=== PATIENT | male | born 1955 | race Caucasian/White ===

== ENCOUNTER 2020-05-13 22:09 | Inpatient (IN) | payer OTHER, SELFPAY ==
--- NOTE | ~2020-05-13 | XR_ITS ---
EXAMINATION: XR chest 1V portable EXAM DATE: 05/13/2020 23:19 INDICATION: Asthma exacerbation. TECHNIQUE: Portable AP frontal chest x-ray was obtained. There is no prior study for comparison. FINDINGS: Extensive abnormal reticulation bilaterally. Difficult to determine how much of this is chr onic. Could be acute or chronic infectious process, edema, pulmonary fibrosis or combination thereof. Small bilateral pleural effusions. Cardiomediastinal silhouette is normal. There is no pneumothorax suspected. There are no osseous abnormalities identified. IMPRESSION: Extensive abnormal reticulation, differential diagnosis including acute or chronic infec tious process, edema, fibrosis. Small pleural effusions. Reviewed, dictated and finalized at location A. IMPRESSION: Extensive abnormal reticulation, differential diagnosis including acute or chronic infectious process, edema, fibrosis. Small pleural effusions.
--- NOTE | ~2020-05-13 | XR_ITS ---
XR chest 1V portable DATE: 05/15/2020 18:39 INDICATION: Shortness of breath, diaphoresis TECHNIQUE: Portable upright AP chest on 05/15/2020 at 1835 hours COMPARISON: 05/13/2020 portable AP chest at 2320 hours FINDINGS: There is pulmonary vascular congestion and redistribution. There is prominence of the minor fissure. There are mild bilateral pleural effusions. There are bilateral primarily central and lower lung zone infiltrates, increased since 05/13/2020, sug gesting pulmonary edema. Pneumonia is not excluded. Aortic calcification. Diffuse osteopenia. IMPRESSION: Congestive changes, increased bilateral infiltrates since 05/13/2020 Reviewed, dictated and finalized at location A.
--- NOTE | ~2020-05-13 | XR_ITS ---
EXAMINATION: XR chest 1V portable DATE: 05/17/2020 09:24 INDICATION: Pneumonia. TECHNIQUE: A single frontal view of the chest was obtained. COMPARISON: Chest single view 05/15/2020, 05/13/2020 FINDINGS: There are small pleural effusions. There is a diffuse interstitial pattern in the lungs. Th ere are mild patchy airspace opacities in right mid and upper lung zones and left mid and lower lung zones. No pneumothorax. The heart size is normal. IMPRESSION: 1. Stable diffuse lung disease, consistent with pulmonary edema versus pneumonia. 2. Stable small pleural effusions. Reviewed, dictated and finalized at location A. IMPRESSION: 1. Stable diffuse lung disease, consistent with pulmonary edema versus pneumoni a. 2. Stable small pleural effusions.
--- NOTE | 2020-05-13 22:17 | ECG_ITS ---
Measurements Intervals [place] Rate: 99 P: 52 [place]: 202 QRS: 84 QRSD: 113 T: -19 QT: 342 QTc: 441 Interpretive Statements SINUS RHYTHM SHORT RUN OF ATRIAL TACHYCARDIA, ATRIAL TRIPLETS, ATRIAL AND VENTRICULAR PREMATURE COMPLEXES INTRAVENTRICULAR CONDUCTION DELAY ANTEROSEPTAL INFARCT, AGE INDETERMINATE BORDERLINE ST-T WAVE ABNORMALITY- INF/LAT LEADS BASELINE ARTIFACT- I, II, III, AVR, AVF, V5-V6 ABNORMAL ECG Electronically Signed On 05-14-2020 7:40:36 CDT by Todd Woodard D.O.
--- NOTE | 2020-05-13 22:17 | ED.SOB ---
HPI - SOB/Dyspnea General Chief Complaint: Shortness of Breath/Dyspnea Stated Complaint: short of breath Time Seen by Provider: 05/13/20 22:17 Source: patient Mode of arrival: ambulatory Limitations: no limitations History of Present Illness HPI Narrative: Patient is a 64-year-old male with a history of asthma, not currently on any maintenance medications, who presents for evaluation of wheezing and shortness of breath. Patient reports he had been drinking alcohol this evening, had developed some shortness of breath throughout the evening, with increased wheezing and shortness of breath to the point where the patient felt he needed to come to the hospital for a albuterol treatment. Patient denies previous hospitalization or intubation for asthma in the past, is currently not on any maintenance medications. He denies smoking history. He denies any chest pain. No recent fever, cough, cold illnesses. He does report some mild sinus congestion. Related Data Allergies Allergy/AdvReac Type Severity Reaction Status Date / Time No Known Allergies Allergy Unverified 04/24/13 12:39 Review of Systems Review of Systems: Narrative: CONSTITUTIONAL: Denies fever CARDIOVASCULAR: Denies chest pain RESPIRATORY: Denies cough, reports shortness of breath GASTROINTESTINAL: Denies abdominal pain SKIN: Denies rash MUSCULOSKELETAL: Denies back pain NEUROLOGIC: Denies headache PMFSH Past Medical History Medical History Asthma Hypertension Surgical History Surgical History (Updated 05/13/20 @ 22:26 by Anamaria Whyte MD) H/O hand surgery Social History Social History (Updated 05/13/20 @ 22:26 by Anamaria Whyte MD) Smoking status: Never smoker Alcohol intake: current Substance use: never Gender identity (if verbalized by the patient): Male Exam Narrative: Exam Narrative: GENERAL: Awake, alert, conversant HEAD: Normocephalic, atraumatic. EYES: PERRLA and EOMI. ENT: Nares clear, no rhinorrhea or epistaxis. Mucous membranes moist. NECK: Supple. CHEST: Oxygen saturations 84% on room air, positive respiratory distress, use of accessory muscles to breathe, abdominal muscle retractions, bilateral expiratory wheezing, tachypnea HEART: Regular rate, sinus rhythm ABDOMEN:Non distended, non tender EXTREMITIES: Normal range of motion. No edema. SKIN: Warm, dry, no rash. NEURO:No focal deficits. Alert and oriented x3 Course Vital Signs Vital signs: Vital Signs Temperature 36.6 C 05/13/20 22:19 Pulse Rate 121 H 05/13/20 22:19 Respiratory Rate 28 H 05/13/20 22:19 Blood Pressure 172/103 H 05/13/20 22:19 Pulse Oximetry 85 L 05/13/20 22:19 Temperature 36.6 C 05/13/20 22:19 Pulse Rate 94 05/14/20 00:33 Respiratory Rate 19 05/14/20 00:33 Blood Pressure 128/81 05/14/20 00:33 Pulse Oximetry 99 05/14/20 00:33 MDM - SOB/Dyspnea MDM Narrative Medical decision making narrative: Patient presented for evaluation of shortness of breath. At the time of assessment, patient is tachycardic, tachypneic and hypoxemic on room air. IV was obtained, patient had use of accessory muscles, evidence of respiratory distress, and expiratory wheezing. This did seem consistent with an asthma exacerbation. No other infectious type symptoms per patient. Patient was given IV magnesium, steroids, and a continuous DuoNeb treatment with much improvement in his work of breathing. Chest x-ray is quite concerning for possible pneumonia. We will covid swab patient, blood cultures and lactic were obtained. Pt is septic, but no signs of septic shock. Pt was given IV fluids, there is some data suggesting covid type patient's should not receive large fluid boluses so this was done judiciously in the ED. Patient was given broad-spectrum antibiotics to cover community-acquired pneumonia. Patient also hyponatremic, given his history of alcohol abuse, this is likely beer proteinemia.
[2020-05-13 22:19] VITALS: BP 172/103; PULSE 121; RESP 28; TEMP 36.6; O2SAT 85
[2020-05-13 22:24] VITALS: BP 154/93; PULSE 105; RESP 24; O2SAT 94
[2020-05-13 22:30] LABS: Basophils Absolute Auto 0.1 K/mm3 (0.0-0.1); Basophils Percent Auto 0.7 % (0.2-1.2); Eosinophils Absolute Auto 0.2 K/mm3 (0-0.3); Eosinophils Percent Auto 1.3 % (0-4.4); Hematocrit 42.7 % (42.0-52.0); Hemoglobin 15.4 g/dL (14.0-18.0); Immature Granulocyte Absolute 0.08 K/mm3 (0.00-0.031); Immature Granulocyte Percent A 0.6 % (0-0.5); Lymphocytes Absolute Auto 3.32 K/mm3 (0.9-3.2); Lymphocytes Percent Auto 24.7 % (18.3-44.2); Mean Corpuscular HGB Conc 36.1 g/dl (32-36); Mean Corpuscular Volume 88.8 fl (80-100); Mean Platelet Volume 11.2 fl (7.4-10.4); Monocytes Absolute Auto 1.7 K/mm3 (0.1-0.6); Monocytes Percent Auto 12.6 % (2.6-8.5); Neutrophils Absolute Auto 8.1 K/mm3 (1.3-6.7); Neutrophils Percent Auto 60.1 % (45.5-73.1); Platelet Count Result 306 k/mm3 (150-375); Red Blood Count 4.81 M/mm3 (4.6-6.20); Red Cell Distribution Width 11.9 % (11.5-14.5); White Blood Count 13.5 K/mm3 (4.5-10.0)
[2020-05-13 22:36] VITALS: PULSE 83; RESP 20; O2SAT 98
[2020-05-13] MEDS: ALBUTEROL SULFATE NEB 2.5 MG/0.5 ML INH 20 MG INHALATION (22:36)
[2020-05-13] MEDS: IPRATROPIUM BR 0.02% INH SOLN 0.5 MG/2.5 ML VIAL 2 MG INHALATION (22:36)
[2020-05-13 22:44] LABS: Alveolar/Arterial O2 Gradient 287.7 mmHg; Carboxyhemoglobin 0.6 % THb (0-2.0); Device SIMPLE MASK; Fractional Inspired Oxygen 60 %; Methemoglobin ABG 0.4 %THb (0-1.5); Modified Allen's Test Pass; Oxygen Content ABG 20.9 %vol (16.0-22.0); Oxyhemoglobin 96.5 % THb (90.0-100.0); PCO2 ABG 32.5 mmHg (35.0-45.0); PO2 ABG 104.4 mmHg (80.0-100.0); PO2 FiO2 Ratio Arterial Blood 1.74 %; Reduced Hemoglobin 2.5 %THb (0-5.0); Site Drawn LEFT RADIAL; Total Hemoglobin 15.3 g/dL (12.0-18.0); pH ABG 7.449 (7.350-7.450)
[2020-05-13 22:44] LABS: Anion Gap 17 mmol/L (8-16); Blood Urea Nitrogen 8 mg/dL (9-20); Calcium 8.8 mg/dL (8.4-10.2); Carbon Dioxide 22 mmol/L (22-30); Chloride 79 mmol/L (98-107); Estimated Glomerular Filt Rate > 60; Glucose 145 mg/dL (75-110); Potassium 3.3 mmol/L (3.4-5.0); Sodium 118 mmol/L (137-145)
[2020-05-13] MEDS: SODIUM CHLORIDE 0.9% IV 500 ML 999 ML IV CONT (22:47)
[2020-05-13] MEDS: methylPREDNISolone SOD SUCC 125 MG VIAL IV PUSH (22:47)
[2020-05-13] MEDS: MAGNESIUM SULF 2 GM/WATER 50ML 2 GM/50 ML BAG IVPB (22:47)
[2020-05-13 22:49] VITALS: BP 163/99; PULSE 83; RESP 17; O2SAT 98
[2020-05-13 22:54] LABS: INR 1.1; Prothrombin Time 13.4 Seconds (11.1-14.7)
[2020-05-13 22:55] LABS: Partial Thromboplastin Time 29.6 SECONDS (22.3-36.8)
[2020-05-13 23:03] LABS: Ethanol 235 mg/dL (<10)
[2020-05-13 23:17] VITALS: BP 120/77; PULSE 87; RESP 16; O2SAT 100
--- NOTE | 2020-05-13 23:36 | PC.NURSE ---
pt called this into room. pt states his insurance does not cover him being admitted to this hospital so he doesn't want to stay. this rn informed md obrien. she states she will go talk to pt.
[2020-05-14] VITALS (23 sets, daily range): BP systolic 110–149; BP diastolic 65–87; PULSE 82–118; RESP 14–22; TEMP 35.8–37; O2SAT 95–99; BMI 27.0
[2020-05-14] MEDS: SODIUM CHLORIDE 0.9% IV 1,000 ML 999 ML IV CONT (01:23)
[2020-05-14] MEDS: ALBUTEROL SULFATE NEB 2.5 MG/0.5 ML INH 5 MG INHALATION ×4 (01:41→20:52)
[2020-05-14] MEDS: IPRATROPIUM BR 0.02% INH SOLN 0.5 MG/2.5 ML VIAL INHALATION ×4 (01:41→20:53)
[2020-05-14 02:16] LABS: CRP 1.2 mg/dL (<1.0)
--- NOTE | 2020-05-14 02:34 | ADMGEN ---
This patient, Piotr Haley, was admitted to Intensive Care Unit-5. Patient/family oriented to hospital policies and general routines including ID bracelet, bed and alarms, visiting hours, pain management, procedures, bathroom and other care routines, personal items, smoking policy, room service/diet, and visiting hours. Valuables list has been completed. Information on how to activate the Rapid Response Team has been discussed. Patient/Family are encouraged to report perceived risks to care and to ask questions if they do not understand what they are told or what they should do.
--- NOTE | 2020-05-14 03:02 | PM.IMHP ---
H&P: HPI History of Present Illness Date/Time: 05/14/20 03:02 Chief complaint: Pneumonia Narrative: This is a 64 year old male with known HTN and asthma who [facility] complaining of shortness of breath. Associated symptoms include wheezing. The patient recently was diagnosed with pneumonia and completed a course of amoxicillin for same. He reports that he was feeling better until tonight when he started to have worsening shortness of breath and wheezing. He denies any recent fever, chills, cough, chest pain, or palpitations. He does report having a sore throat. The patient was evaluated in the ER tonight and given multiple breathing treatments. The patient admits to drinking alcohol daily and was found to have severe hyponatremia in the ER tonight. He also was found to have an elevated troponin. CXR demonstrated extensive abnormal reticulation, differential diagnosis including acute or chronic infectious process, edema, fibrosis. Small pleural effusions. We were asked to admit the patient to the hospital for further care. He has no other complaints at this time. Review of Systems Review of Systems: All systems reviewed & are unremarkable except as noted in HPI and below PMFSH Past Medical History Medical History Asthma Hypertension Surgical History Surgical History H/O hand surgery Family History Family History Mother Heart disease Skin cancer Father Skin cancer Father Heart disease Sibling Diabetes mellitus Social History Social History Smoking packs per day: 0.5 Smoking cigarettes per day: 10.0 Years smoked: 40 Smoking pack-years: 20.00 Smoking status: Former smoker Smoking end date: 05/14/15 Alcohol intake: current Drinks per week: 70 Substance use: never Gender identity (if verbalized by the patient): Male Spiritual care concerns: No Meds Home Medications and Allergies Home Medications Medication Instructions Recorded Confirmed Type amlodipine 10 mg PO DAILY 05/14/20 05/14/20 History atorvastatin 20 mg PO DAILY 05/14/20 05/14/20 History hydrochlorothiazide 12.5 mg PO DAILY 05/14/20 05/14/20 History loratadine 10 mg PO DAILY 05/14/20 05/14/20 History nystatin See Rx Instructions .ROUTE .COMPLEX 05/14/20 05/14/20 History potassium chloride 10 meq PO DAILY 05/14/20 05/14/20 History Allergies Allergy/AdvReac Type Severity Reaction Status Date / Time latex Allergy Rash Verified 05/14/20 02:19 lisinopril Allergy Anaphylaxis Verified 05/14/20 02:19 Vital Signs Vital Signs - 24 hr 05/13/20 22:19 05/13/20 22:24 05/13/20 22:36 Temperature 36.6 C Pulse Rate 121 H 105 H 83 Respiratory Rate 28 H 24 H 20 Blood Pressure 172/103 H 154/93 H Pulse Oximetry 85 L 94 98 05/13/20 22:49 05/13/20 23:17 05/14/20 00:33 Temperature Pulse Rate 83 87 94 Respiratory Rate 17 16 19 Blood Pressure 163/99 H 120/77 128/81 Pulse Oximetry 98 100 99 05/14/20 01:38 05/14/20 01:41 05/14/20 01:50 Temperature Pulse Rate 90 85 82 Respiratory Rate 18 20 20 Blood Pressure 149/74 H Pulse Oximetry 95 95 05/14/20 02:15 Temperature Pulse Rate 97 Respiratory Rate Blood Pressure Pulse Oximetry Exam Const: General: cooperative, alert and awake Nutritional Appearance: well nourished Orientation/consciousness: patient oriented x3 HENMT: Head: normal to inspection General nose exam: Normal external nose present Face and sinus: normal facial exam Mouth: Yes Normal oral and palatal mucosa present and Yes oropharynx normal Eyes: Pupils: Equal, round and reactive pupils present EOM: EOMs intact bilaterally Neck: Neck: supple and no JVD Thyroid: thyroid normal Lymphatic: lymphadenopathy not noted Resp: Effort & Inspec
[2020-05-14 04:00] LABS: Reflex Lactic Acid Yes or No Add Lactic
[2020-05-14] MEDS: SODIUM CHLORIDE 0.9% IV 1,000 ML 100 ML (04:35)
[2020-05-14 05:11] LABS: Basophils Percent Auto 0.2 % (0.2-1.2); Hematocrit 40.9 % (42.0-52.0); Hemoglobin 14.6 g/dL (14.0-18.0); Immature Granulocyte Absolute 0.02 K/mm3 (0.00-0.031); Immature Granulocyte Percent A 0.3 % (0-0.5); Lymphocytes Absolute Auto 0.31 K/mm3 (0.9-3.2); Lymphocytes Percent Auto 5.1 % (18.3-44.2); Mean Corpuscular HGB Conc 35.7 g/dl (32-36); Mean Corpuscular Volume 89.7 fl (80-100); Mean Platelet Volume 11.5 fl (7.4-10.4); Monocytes Absolute Auto 0.1 K/mm3 (0.1-0.6); Monocytes Percent Auto 1.7 % (2.6-8.5); Neutrophils Absolute Auto 5.6 K/mm3 (1.3-6.7); Neutrophils Percent Auto 92.7 % (45.5-73.1); Platelet Count Result 281 k/mm3 (150-375); Red Blood Count 4.56 M/mm3 (4.6-6.20); Red Cell Distribution Width 11.9 % (11.5-14.5)
[2020-05-14 05:38] LABS: Anion Gap 21 mmol/L (8-16); Blood Urea Nitrogen 5 mg/dL (9-20); Calcium 8.6 mg/dL (8.4-10.2); Carbon Dioxide 14 mmol/L (22-30); Chloride 89 mmol/L (98-107); Estimated CRCL calculation 120 ml/min; Estimated Glomerular Filt Rate > 60; Glucose 183 mg/dL (75-110); Potassium 2.8 mmol/L (3.4-5.0); Sodium 124 mmol/L (137-145)
[2020-05-14 05:53] LABS: Troponin I 0.038 ng/mL (0.000-0.034)
[2020-05-14 05:54] LABS: Sodium Urine Random 20 meq/L
[2020-05-14 09:22] LABS: Hemoglobin A1C 5.2 % (<5.7)
[2020-05-14 09:40] LABS: Anion Gap 17 mmol/L (8-16); Blood Urea Nitrogen 4 mg/dL (9-20); Calcium 8.6 mg/dL (8.4-10.2); Carbon Dioxide 20 mmol/L (22-30); Chloride 89 mmol/L (98-107); Estimated CRCL calculation 120 ml/min; Estimated Glomerular Filt Rate > 60; Glucose 202 mg/dL (75-110); Potassium 3.1 mmol/L (3.4-5.0); Sodium 126 mmol/L (137-145)
[2020-05-14] MEDS: SODIUM CHLORIDE 0.9% IV 1,000 ML 100 ML IV CONT (09:43)
[2020-05-14] MEDS: ATORVASTATIN 20 MG TABLET PO (10:20)
[2020-05-14] MEDS: THIAMINE HCL 100 MG TABLET PO (10:20)
[2020-05-14] MEDS: LORATADINE 10 MG TABLET PO (10:20)
[2020-05-14 12:48] LABS: Glucose Point of Care 207 (65-105)
[2020-05-14 13:34] LABS: SARS-CoV-2 RNA PCR Negative
[2020-05-14 17:06] LABS: Glucose Point of Care 135 (65-105)
--- NOTE | 2020-05-14 18:05 | PC.NURSE ---
This patient, Piotr Haley, was received from ICU on 05/14/20 at 1805. Personal belongings list checked and signed. Patient/family oriented to unit policies and routines. Report received from SHERLYN Dumont.
--- NOTE | 2020-05-14 18:14 | PC.NURSE ---
This patient, Piotr Haley, was transferred to [facility] on 05/14/20 at 1800. Personal belongings sent with patient. Belongings list checked. Report given to Marie PLATA. Appropriate documentation sent with patient.
--- NOTE | 2020-05-14 18:44 | PM.IMPN ---
Subjective Date/time seen: 05/14/20 18:44 Interval history: PT seen in ICU.64 year old male with known HTN and asthma who presented to the hospital tonight complaining of shortness of breath. Likely community acquired pneumonia. Pt is COVID negative transfer to the floor continue same orders order lactate level on the floor. Objective Data Vital Signs Vital Signs: Vital Signs - 24 hr 05/13/20 22:19 05/13/20 22:24 05/13/20 22:36 Temperature 36.6 C Pulse Rate 121 H 105 H 83 Respiratory Rate 28 H 24 H 20 Blood Pressure 172/103 H 154/93 H Pulse Oximetry 85 L 94 98 05/13/20 22:49 05/13/20 23:17 05/14/20 00:33 Temperature Pulse Rate 83 87 94 Respiratory Rate 17 16 19 Blood Pressure 163/99 H 120/77 128/81 Pulse Oximetry 98 100 99 05/14/20 01:38 05/14/20 01:41 05/14/20 01:50 Temperature Pulse Rate 90 85 82 Respiratory Rate 18 20 20 Blood Pressure 149/74 H Pulse Oximetry 95 95 05/14/20 02:15 05/14/20 04:00 05/14/20 04:04 Temperature 35.8 C L Pulse Rate 97 96 Respiratory Rate 14 Blood Pressure 110/65 110/65 Pulse Oximetry 95 05/14/20 06:00 05/14/20 08:00 05/14/20 08:40 Temperature Pulse Rate 103 H 103 H 99 Respiratory Rate 19 22 H Blood Pressure 147/86 H Pulse Oximetry 97 05/14/20 08:41 05/14/20 08:46 05/14/20 10:06 Temperature Pulse Rate 104 H 106 H Respiratory Rate 20 Blood Pressure Pulse Oximetry 97 05/14/20 11:58 05/14/20 12:00 05/14/20 13:56 Temperature 36.6 C Pulse Rate 103 H 100 107 H Respiratory Rate 17 17 Blood Pressure 129/70 Pulse Oximetry 98 05/14/20 14:02 05/14/20 14:11 05/14/20 17:02 Temperature 36.2 C L Pulse Rate 104 H 118 H 101 H Respiratory Rate 17 20 Blood Pressure 135/82 Pulse Oximetry 97 05/14/20 18:42 Temperature 36.8 C Pulse Rate 108 H Respiratory Rate 14 Blood Pressure 142/74 H Pulse Oximetry 98 Intake/Output Intake/Output: Intake & Output 05/11/20 05/12/20 05/13/20 05/14/20 23:59 23:59 23:59 23:59 Intake Total 2290 Output Total 4925 Balance -2635 Meds/Results Medications: Active Medications Generic Name Dose Route Start Last Admin Trade Name Freq PRN Reason Stop Dose Admin Acetaminophen 650 mg 05/14/20 00:37 Tylenol Tablet PO Q4H PRN Mild Pain (1-3) or Fever Albuterol 5 mg 05/14/20 02:00 05/14/20 13:55 Albuterol Sulf Neb 2.5mg/0.5ml INHALATION 5 mg Q6HRT WENDY Administration Atorvastatin Calcium 20 mg 05/14/20 09:00 05/14/20 10:20 Lipitor PO 20 mg DAILY WENDY Administration Dextrose 12.5 gm 05/14/20 14:12 Dextrose 50% Syringe IV PUSH PRN PRN Hypoglycemia Protocol Glucagon 1 mg 05/14/20 14:12 Glucagon For Inj IM PRN PRN Hypoglycemia Protocol Glucose 15 gm 05/14/20 14:12 Glutose 15 PO PRN PRN Hypoglycemia Protocol Ceftriaxone Sodium/Dextrose 1 gm in 50 mls @ 100 mls/hr 05/14/20 18:00 05/14/20 17:03 Rocephin 1 Gm/D5w 50 Ml IVPB 100 mls/hr Q24H WENDY Administration Azithromycin 500 mg in 250 mls @ 250 mls/hr 05/15/20 00:00 Zithromax IVPB Q24H WENDY Dextrose 1,000 mls @ 100 mls/hr 05/14/20 14:12 Dextrose 5% 1,000 Ml IVPB PRN PRN Hypoglycemia Protocol Insulin Aspart 2 - 5 units 05/14/20 17:00 05/14/20 16:59 Novolog SUB-Q Not Given TIDWM WENDY Protocol Ipratropium [place] 0.5 mg 05/14/20 02:00 05/14/20 13:55 Atrovent Neb INHALATION 0.5 mg Q6HRT WENDY Administration Loratadine 10 mg 05/14/20 09:00 05/14/20 10:20 Claritin PO 10 mg DAILY WENDY Administration Lorazepam 1 mg 05/14/20 04:04 Ativan Inj IV PUSH Q4H PRN Withdrawal Ondansetron HCl 4 mg 05/14/20 00:37 Zofran Inj IV PUSH Q4H PRN Nausea Thiamine HCl 100 mg 05/14/20 09:00 05/14/20 10:20 Vitamin B-1 PO 100 mg QAM WENDY Administration Radiology Results: ITS Impressions Chest X
[2020-05-14 20:20] LABS: Lactic Acid 2.6 mmol/L (0.7-2.1)
[2020-05-14 21:56] LABS: Glucose Point of Care 126 (65-105)
[2020-05-15] VITALS (20 sets, daily range): BP systolic 116–182; BP diastolic 70–127; PULSE 93–121; RESP 16–35; TEMP 36.6–37.2; O2SAT 90–100
[2020-05-15 05:42] LABS: Hematocrit 38.1 % (42.0-52.0); Hemoglobin 13.6 g/dL (14.0-18.0); Mean Corpuscular HGB Conc 35.7 g/dl (32-36); Mean Corpuscular Hemoglobin 31.6 pg (26-34); Mean Corpuscular Volume 88.6 fl (80-100); Mean Platelet Volume 11.9 fl (7.4-10.4); Platelet Count Result 276 k/mm3 (150-375); Red Cell Distribution Width 12.2 % (11.5-14.5); White Blood Count 20.6 K/mm3 (4.5-10.0)
[2020-05-15 06:00] LABS: Potassium 3.7 mmol/L (3.4-5.0)
[2020-05-15 06:08] LABS: Anion Gap 8 mmol/L (8-16); Blood Urea Nitrogen 9 mg/dL (9-20); Calcium 8.7 mg/dL (8.4-10.2); Carbon Dioxide 25 mmol/L (22-30); Chloride 94 mmol/L (98-107); Estimated CRCL calculation 102 ml/min; Estimated Glomerular Filt Rate > 60; Glucose 116 mg/dL (75-110); Sodium 127 mmol/L (137-145)
[2020-05-15] MEDS: ALBUTEROL SULFATE NEB 2.5 MG/0.5 ML INH 5 MG INHALATION ×3 (07:54→19:15)
[2020-05-15] MEDS: IPRATROPIUM BR 0.02% INH SOLN 0.5 MG/2.5 ML VIAL INHALATION ×3 (07:54→19:15)
[2020-05-15] MEDS: THIAMINE HCL 100 MG TABLET PO (08:27)
[2020-05-15] MEDS: LORATADINE 10 MG TABLET PO (08:27)
[2020-05-15] MEDS: ATORVASTATIN 20 MG TABLET PO (08:27)
[2020-05-15 08:39] LABS: Glucose Point of Care 132 (65-105)
[2020-05-15 11:46] LABS: Glucose Point of Care 137 (65-105)
--- NOTE | 2020-05-15 13:24 | PM.IMPN ---
Progress Note: A&P Assessment and Plan (1) Community acquired pneumonia: Qualifiers: Laterality: unspecified laterality Qualified Code(s): J18.9 - Pneumonia, unspecified organism Code(s): J18.9 - Pneumonia, unspecified organism Status: Acute Assessment and Plan: r/o bacterial vs. viral pneumonia. (2) Severe sepsis: Code(s): A41.9 - Sepsis, unspecified organism; R65.20 - Severe sepsis without septic shock Status: Acute Assessment and Plan: w/ tachycardia, leukocytosis and elevated lactic acid. . (3) Alcoholism: Code(s): F10.20 - Alcohol dependence, uncomplicated Status: Chronic Assessment and Plan: CIHI-AR protocol. Thiamine PO daily, Lorazepam alcohol withdrawal prophylaxis. (4) Elevated troponin: Code(s): R79.89 - Other specified abnormal findings of blood chemistry Status: Acute Assessment and Plan: r/o ACS - trend troponin. further chest pain transfer to IMU NTG lovenox full dose Subjective Date/time seen: 05/15/20 13:24 Interval history: PT seen in ICU.64 year old male with known HTN and asthma who presented to the [facility] complaining of shortness of breath. Likely community acquired pneumonia. Pt is COVID negative transfer to the floor Pt appears SOB and tacycardic Rapid response called Pt is clammy cold sweaty CXR, EKG troponin orderd CXR shows pulmology edema AWaiting trop , BMP and proBNP LOVENOX full dose NTG patch IV lasix BID pt intially admitted for CAP and asthma TRansfer to IMU FOr florid pulmonary edema ABG looks fine Review of Systems Review of Systems: ROS unobtainable: Yes unobtainable due to medical condition Exam Narrative: Exam Narrative: Cold clammy unwell RRR tachy CHest BL crackles and wheezes Objective Data Vital Signs Vital Signs: Vital Signs - 24 hr 05/14/20 13:56 05/14/20 14:02 05/14/20 14:11 Temperature Pulse Rate 107 H 104 H 118 H Respiratory Rate 17 17 Blood Pressure Pulse Oximetry 05/14/20 17:02 05/14/20 18:42 05/14/20 20:53 Temperature 36.2 C L 36.8 C Pulse Rate 101 H 108 H 98 Respiratory Rate 20 14 16 Blood Pressure 135/82 142/74 H Pulse Oximetry 97 98 08/15/20 21:03 05/14/20 22:00 05/15/20 04:00 Temperature 37.0 C Pulse Rate 95 99 Respiratory Rate 16 18 Blood Pressure 146/87 H 146/87 H Pulse Oximetry 96 05/15/20 06:00 05/15/20 07:56 05/15/20 08:02 Temperature 36.6 C Pulse Rate 93 93 95 Respiratory Rate 16 20 20 Blood Pressure 147/90 H Pulse Oximetry 95 Intake/Output Intake/Output: Intake & Output 05/12/20 05/13/20 05/14/20 05/15/20 23:59 23:59 23:59 23:59 Intake Total 2290 1110 Output Total 5406 0399 Balance -9020 -390 Meds/Results Medications: Active Medications Generic Name Dose Route Start Last Admin Trade Name Freq PRN Reason Stop Dose Admin Acetaminophen 650 mg 05/14/20 00:37 Tylenol Tablet PO Q4H PRN Mild Pain (1-3) or Fever Albuterol 5 mg 05/14/20 02:00 05/15/20 07:54 Albuterol Sulf Neb 2.5mg/0.5ml INHALATION 5 mg Q6HRT WENDY Administration Atorvastatin Calcium 20 mg 05/14/20 09:00 05/15/20 08:27 Lipitor PO 20 mg DAILY WENDY Administration Dextrose 12.5 gm 05/14/20 14:12 Dextrose 50% Syringe IV PUSH PRN PRN Hypoglycemia Protocol Glucagon 1 mg 05/14/20 14:12 Glucagon For Inj IM PRN PRN Hypoglycemia Protocol Glucose 15 gm 05/14/20 14:12 Glutose 15 PO PRN PRN Hypoglycemia Protocol Ceftriaxone Sodium/Dextrose 1 gm in 50 mls @ 100 mls/hr 05/14/20 18:00 05/14/20 17:03 Rocephin 1 Gm/D5w 50 Ml IVPB 100 mls/hr Q24H WENDY Administration Azithromycin 500 mg in 250 mls @ 250 mls/hr 05/15/20 00:00 05/15/20 01:00 Zithromax IVPB Infused Q24H WENDY Infusion Dextrose 1,000 mls @ 100 mls/hr 05/14/20 14:12 Dextrose 5% 1,000 Ml IVPB PRN PRN
[2020-05-15 16:45] LABS: Glucose Point of Care 119 (65-105)
[2020-05-15] MEDS: SODIUM CHLORIDE 0.9% IV 1,000 ML 100 ML IV CONT (17:04)
--- NOTE | 2020-05-15 18:15 | ECG_ITS ---
Measurements Intervals [place] Rate: 115 P: 58 MS: 173 QRS: 90 QRSD: 105 T: -42 QT: 321 QTc: 446 Interpretive Statements SINUS TACHYCARDIA BORDERLINE R WAVE PROGRESSION, ANTERIOR LEADS ST-T WAVE ABNORMALITY IN INFERIOR LEADS- CONSIDER ISCHEMIA BASELINE ARTIFACT- I, II, III, AVR, AVL, AVF, V1, V4-V6 ABNORMAL ECG Electronically Signed On 05-15-2020 20:13:25 CDT by Todd Woodard D.O.
[2020-05-15 18:35] LABS: Alveolar/Arterial O2 Gradient 139.2 mmHg; Base Excess ABG -0.1 mEq/l (+/-2.0); Fractional Inspired Oxygen 32 %; Oxygen Saturation ABG 91.2 % (95.0-100.0); Oxyhemoglobin 88.6 % THb (90.0-100.0); PCO2 ABG 29.4 mmHg (35.0-45.0); PO2 ABG 54.6 mmHg (80.0-100.0); PO2 FiO2 Ratio Arterial Blood 1.71 %; Total Hemoglobin 15.3 g/dL (12.0-18.0); pH ABG 7.492 (7.350-7.450)
[2020-05-15 18:36] LABS: Device NASAL CANNULA; Modified Allen's Test Pass; Site Drawn RIGHT RADIAL
[2020-05-15] MEDS: ENOXAPARIN 80 MG/0.8 ML SYRINGE 76 MG SUB-Q (18:45)
[2020-05-15 18:53] LABS: Glucose Point of Care 166 (65-105)
[2020-05-15 19:20] LABS: NT Pro B Type Natriuretic Pept 5600 PG/ML (5-100); Troponin I 0.247 ng/mL (0.000-0.034)
--- NOTE | 2020-05-15 19:22 | PC.NURSE ---
Approximately 1800 patient called out complaining of shortness of breath. Upon entering patients room he was diaphoretic, labored breathing and stating he felt like he couldn't breathe. Checked vital signs and oxygen saturation was 90% on RA, tachycardia in the 110's. Applied 2L NC and sats increased to 94%. Patient placed on telemetry. Dr. Clayton on the floor and notified of patients tachypnea, tachycardia, and being diaphoretic. Requested orders for EKG, ABGS, trops, and CXR. Obtained orders. Respiratory called to bedside. RT Rachel responded and at bedside drawing ABG's. EKG results handed to Dr. Clayton. At this time, patients saturation and breathing began worsening. Called Dr. Clayton to bedside and rapid response was called.
--- NOTE | 2020-05-15 19:28 | PC.NURSE ---
This patient, Piotr Haley, was transferred to IMU on 05/15/20 at 1900. Personal belongings sent with patient. Belongings list checked and signed with receiving. Report given to SHERLYN Johnson. Appropriate documentation sent with patient.
[2020-05-15 20:36] LABS: Glucose Point of Care 163 (65-105)
--- NOTE | 2020-05-15 21:00 | PC.NURSE ---
This patient, Piotr Haley, was received from [ [facility]] on 05/15/20 at 1900. Personal belongings list checked and signed. Patient/family oriented to unit policies and routines
[2020-05-15 22:37] LABS: Troponin I 0.271 ng/mL (0.000-0.034)
[2020-05-16] VITALS (26 sets, daily range): BP systolic 116–136; BP diastolic 69–90; PULSE 78–114; RESP 15–29; TEMP 36.6–36.9; O2SAT 93–100
--- NOTE | 2020-05-16 | ECHO_ITS ---
Patient Info Name: Piotr Haley Age: 64 years : 1955 Gender: Male Ht: 68 in Wt: 168 lbs BSA: 1.92 m2 HR: 99 bpm BP: 123 / 70 mmHg Technical Quality: Good Exam Date: 05/16/2020 11:16 AM Exam Location: [facility] Pulmonary Exam Room: 201 Patient Status: Inpatient Admit Date: 05/14/2020 Staff Ordering Physician: Surya Zamora MD Extruding Press Adjuster: Sujatha Jennings RDCS Attending Provider: Jos Martínez MD Exam Type: CA echo doppler color flow Study Info Indications - chf sob dop h/o asthma Complete two-dimensional, color flow and Doppler transthoracic echocardiogram is performed. Summary 1. Left ventricular chamber dimension is moderately enlarged. 2. Left ventricular systolic function is severely reduced, estimated at 30-35%. 3. The left ventricular diastolic function is abnormal. 4. E/e' 23 is elevated. 5. Global longitudinal strain is abnormal at -7.5%. 6. Left atrial chamber dimension is moderately enlarged. 7. There is moderate aortic valve sclerosis. 8. There is mild mitral valve regurgitation. 9. There is trace tricuspid valve regurgitation. 10. No pulmonary hypertension, estimated pulmonary arterial systolic pressure is 26 mmHg. Left Ventricle E/e' 23 is elevated. Global longitudinal strain is abnormal at -7.5%. Left ventricular chamber dimension is moderately enlarged. Left ventricular systolic function is severely reduced, estimated at 30-35%. The left ventricular diastolic function is abnormal. Right Ventricle Right ventricular chamber dimension is normal. Right ventricular systolic function is normal. Left Atria Left atrial chamber dimension is moderately enlarged. Right Atria Right atrial chamber dimension is normal. Aortic Valve The aortic valve is trileaflet. There is moderate aortic valve sclerosis. There is no aortic valve stenosis. There is no aortic valve regurgitation. Pulmonic Valve There is no pulmonic regurgitation. Mitral Valve There is no mitral valve stenosis. There is mild mitral valve regurgitation. Tricuspid Valve There is trace tricuspid valve regurgitation. No pulmonary hypertension, estimated pulmonary arterial systolic pressure is 26 mmHg. Pericardium/Pleural There is no pericardial effusion. Inferior Vena Cava Normal inferior vena cava with >50% collapse upon inspiration consistent with normal right atrial pressure, 5 mmHg. Aorta The aortic root size at the sinus of Valsalva is normal. Left Ventricular Outflow Tract Name Value Normal LVOT 2D LVOT Diameter 2.1 cm LVOT Doppler LVOT Peak Gradient 3 mmHg LVOT Mean Gradient 2 mmHg LVOT VTI 16 cm LVOT VTI/AV VTI Ratio 1.1 LVOT Stroke Volume 57 ml LVOT CO 12.4 l/min LVOT CI 6.5 l/min/m2 Pulmonic Valve Name Value Normal
[2020-05-16] MEDS: ALBUTEROL SULFATE NEB 2.5 MG/0.5 ML INH 5 MG INHALATION ×4 (01:39→19:39)
[2020-05-16] MEDS: IPRATROPIUM BR 0.02% INH SOLN 0.5 MG/2.5 ML VIAL INHALATION ×4 (01:39→19:39)
[2020-05-16 02:02] LABS: Troponin I 0.262 ng/mL (0.000-0.034)
[2020-05-16] MEDS: ENOXAPARIN 80 MG/0.8 ML SYRINGE 76 MG SUB-Q ×2 (06:19→18:28)
[2020-05-16 08:40] LABS: Glucose Point of Care 132 (65-105)
[2020-05-16] MEDS: THIAMINE HCL 100 MG TABLET PO (08:56)
[2020-05-16] MEDS: FUROSEMIDE INJ 40 MG/4 ML VIAL 20 MG IV PUSH ×2 (08:59→17:10)
[2020-05-16 09:43] LABS: Hematocrit 39.7 % (42.0-52.0); Hemoglobin 13.6 g/dL (14.0-18.0); Mean Corpuscular HGB Conc 34.3 g/dl (32-36); Mean Corpuscular Hemoglobin 31.5 pg (26-34); Mean Corpuscular Volume 91.9 fl (80-100); Mean Platelet Volume 11.6 fl (7.4-10.4); Platelet Count Result 261 k/mm3 (150-375); Red Blood Count 4.32 M/mm3 (4.6-6.20); Red Cell Distribution Width 12.5 % (11.5-14.5); White Blood Count 16.6 K/mm3 (4.5-10.0)
[2020-05-16 09:56] LABS: Anion Gap 12 mmol/L (8-16); Blood Urea Nitrogen 11 mg/dL (9-20); Calcium 8.5 mg/dL (8.4-10.2); Carbon Dioxide 26 mmol/L (22-30); Chloride 87 mmol/L (98-107); Estimated CRCL calculation 102 ml/min; Estimated Glomerular Filt Rate > 60; Glucose 173 mg/dL (75-110); Magnesium 1.5 mg/dL (1.6-2.3); Potassium 3.7 mmol/L (3.4-5.0); Sodium 125 mmol/L (137-145)
[2020-05-16 12:29] LABS: Glucose Point of Care 148 (65-105)
--- NOTE | 2020-05-16 16:06 | PM.CNCAR ---
Assessment and Plan Additional Plan 64-year-old man with a background of longstanding hypertension and alcohol abuse presents to the hospital with shortness of breath and evidence of left-sided congestive heart failure. He worsened with IV fluid loading for the 1st 24-36 hours that he was in the hospital. Course the most likely etiology of his cardiomyopathy is longstanding hypertension and ethanol abuse. He is having no symptoms that suggest overt myocardial ischemia although obviously ischemic heart disease is in the differential diagnosis as well. Initially he needs to be treated medically for his systolic heart failure which would include Sascha inhibitors, beta-blockers, suppression of the renin angiotensin axis. I would expect that he will improve symptomatic we as these medications are initiated and can be further titrated as an outpatient. He will require ischemic evaluation because of the new diagnosis of LV systolic dysfunction. Catheterization should be recommended and was discussed with the patient in some detail. It is possible to continue to pursue this evaluation here at [facility] it is also possible if not more appropriate for this to be done at the [facility] if this is where he receives his medical care chronically. will follow him with you while he is in the hospital and we initiate and titrate medications for systolic heart failure. Thank you for this consultation Isaias Vincent MD [facility] History of Present Illness History of Present Illness Consult date/time: 05/16/20 16:06 Consult reason: congestive heart failure Reason For Visit: Pneumonia Narrative: This is a 64-year-old man I am seeing at the request of the hospitalist's today to assist with the management of congestive heart failure. The patient was admitted [facility] on Saturday of last week with symptoms of shortness of breath that were going on for about 3 or 4 weeks. He reports symptoms of shortness of breath with exertion he really was not noticing any lower extremity edema orthopnea or PND. He had a cough but it was nonproductive he was not febrile. He came to the emergency room and was felt to have community-acquired pneumonia and was admitted to the hospitalist's service. He was not febrile from what I can see and was placed on some antibiotics and IV fluid. Yesterday he was in much worse condition struggling to breathe and was felt to be in acute pulmonary edema. IV fluid was discontinued and he was given intravenous furosemide. He rapidly felt much better after he diuresed and an echocardiogram was done. This study was interpreted today as showing significant left ventricular systolic dysfunction with an ejection fraction of about 30% and when this stated was obtained we were consulted to see him. He indicates no previous knowledge of heart disease that he can recall. He states his primary care physician is over at [facility]. He says he has a hard time following up regularly because he does not drive and has a hard time getting there for appointments. He was taking medication for hypertension but had self discontinued these medications a number of months ago. Patient smoked about a pack per day for close to 40 years he quit 10 years ago. He drinks alcohol excessively says he drinks about 10-12 beers daily. The patient's electrocardiogram shows a sinus mechanism with a nonspecific intraventricular conduction abnormality. In this setting he is being seen in consultation. Review of Systems Constitutional: Constitutional: Reports fatigue Eyes: Eyes: Reports no additional eye complaints ENT: Reports system reviewed and no additional complaints, except as documented Cardiovascular: Cardiovascular: Reports no additional cardiovascular complaints Respiratory: Respiratory: Reports dyspnea and Reports wheezing Gastrointestinal: Gastrointestinal: Reports no additional gastrointestinal complaints Genitourinary:
[2020-05-16 17:26] LABS: Glucose Point of Care 145 (65-105)
--- NOTE | 2020-05-16 17:52 | PM.IMPN ---
Progress Note: A&P Assessment and Plan (1) Community acquired pneumonia: Qualifiers: Laterality: unspecified laterality Qualified Code(s): J18.9 - Pneumonia, unspecified organism Code(s): J18.9 - Pneumonia, unspecified organism Status: Acute Assessment and Plan: r/o bacterial vs. viral pneumonia. 05/16/20 17:52 patient is 64-year-old male with history of alcohol abuse presented emergency department with a shortness of breath checks x-ray showed possible pulmonary congestion as well infiltrate, the cardiac showed severe systolic dysfunction with ejection fraction of 35% patient is seen by Cardiology does not suspect ischemic most likely secondary to alcohol abuse recommending medical management and down the road patient may need cardiac catheterization to further evaluate, currently patient states is feeling better not as short of breath as when he arrived as patient being treated with IV Lasix as well as Rocephin azithromycin for possible community-acquired pneumonia, currently patient does not appear DT will continue to monitor with [facility] protocol (2) Severe sepsis: Code(s): A41.9 - Sepsis, unspecified organism; R65.20 - Severe sepsis without septic shock Status: Acute Assessment and Plan: w/ tachycardia, leukocytosis and elevated lactic acid. . (3) Alcoholism: Code(s): F10.20 - Alcohol dependence, uncomplicated Status: Chronic Assessment and Plan: [facility] protocol. Thiamine PO daily, Lorazepam alcohol withdrawal prophylaxis. (4) Elevated troponin: Code(s): R79.89 - Other specified abnormal findings of blood chemistry Status: Acute Assessment and Plan: r/o ACS - trend troponin. further chest pain transfer to IMU NTG lovenox full dose Subjective Date/time seen: 05/16/20 17:52 patient is 64-year-old male with history of alcohol abuse presented emergency department with a shortness of breath checks x-ray showed possible pulmonary congestion as well infiltrate, the cardiac showed severe systolic dysfunction with ejection fraction of 35% patient is seen by Cardiology does not suspect ischemic most likely secondary to alcohol abuse recommending medical management and down the road patient may need cardiac catheterization to further evaluate, currently patient states is feeling better not as short of breath as when he arrived as patient being treated with IV Lasix as well as Rocephin azithromycin for possible community-acquired pneumonia, currently patient does not appear DT will continue to monitor with [facility]WA protocol Review of Systems Review of Systems: All systems reviewed & are unremarkable except as noted in HPI and below Exam Narrative: Exam Narrative: appears chronically ill older than his age Const: General: comfortable and no acute distress HENMT: General nose exam: Normal nares present Mouth: Yes moist mucous membranes Eyes: General: appearance normal, both eyes and all related structures Sclera: sclerae normal Neck: Neck: supple Resp: Other: bilateral fair air entry with rales and rhonchi Cardio: Rate: regular rate Rhythm: regular rhythm GI: Auscultation: normal bowel sounds Skin: General skin exam: normal color Neuro: Speech: normal speech Sensory Exam: normal sensation Extrem: General: normal to inspection Psych: Affect: Anxious affect present Objective Data Vital Signs Vital Signs: Vital Signs - 24 hr 05/15/20 18:13 05/15/20 18:14 05/15/20 18:35 Temperature 98.7 F Pulse Rate 116 H 118 H Respiratory Rate 24 H 35 H Blood Pressure 157/92 H Pulse Oximetry 90 95 100 05/15/20 18:38 05/15/20 18:51 05/15/20 18:56 Temperature Pulse Rate 119 H 115 H 121 H Respiratory Rate 24 H 24 H 24 H Blood Pressure 182/127 H 154/104 H 150/92 H Pulse Oximetry 100 100 99 05/15/20 19:15 05/15/20 19:26 05/15/20 19:30 Temperature Pulse Rate 118 H 116 H Respiratory Rate 28 H 24 H 24 H Blood Pressure
[2020-05-16] MEDS: carvediloL 6.25 MG TABLET PO (20:29)
[2020-05-16 21:17] LABS: Glucose Point of Care 129 (65-105)
[2020-05-17] VITALS (15 sets, daily range): BP systolic 115–129; BP diastolic 75–82; PULSE 66–96; RESP 12–20; TEMP 36.4–37; O2SAT 93–99
[2020-05-17] MEDS: ALBUTEROL SULFATE NEB 2.5 MG/0.5 ML INH 5 MG INHALATION ×2 (01:12→13:58)
[2020-05-17] MEDS: IPRATROPIUM BR 0.02% INH SOLN 0.5 MG/2.5 ML VIAL INHALATION ×2 (01:12→13:57)
[2020-05-17 05:19] LABS: Hemoglobin 11.9 g/dL (14.0-18.0); Mean Corpuscular Hemoglobin 31.9 pg (26-34); Mean Corpuscular Volume 91.2 fl (80-100); Mean Platelet Volume 12.3 fl (7.4-10.4); Platelet Count Result 248 k/mm3 (150-375); Red Blood Count 3.73 M/mm3 (4.6-6.20); Red Cell Distribution Width 12.2 % (11.5-14.5); White Blood Count 12.8 K/mm3 (4.5-10.0)
[2020-05-17 05:39] LABS: Anion Gap 7 mmol/L (8-16); Blood Urea Nitrogen 13 mg/dL (9-20); Calcium 8.6 mg/dL (8.4-10.2); Carbon Dioxide 30 mmol/L (22-30); Chloride 90 mmol/L (98-107); Estimated CRCL calculation 89 ml/min; Estimated Glomerular Filt Rate > 60; Glucose 95 mg/dL (75-110); Magnesium 1.8 mg/dL (1.6-2.3); Potassium 3.1 mmol/L (3.4-5.0); Sodium 127 mmol/L (137-145)
[2020-05-17] MEDS: ENOXAPARIN 80 MG/0.8 ML SYRINGE 76 MG SUB-Q (06:27)
[2020-05-17 07:54] LABS: Glucose Point of Care 112 (65-105)
[2020-05-17] MEDS: carvediloL 6.25 MG TABLET PO (09:10)
[2020-05-17] MEDS: lisinopriL 5 MG TABLET PO (09:12)
[2020-05-17] MEDS: THIAMINE HCL 100 MG TABLET PO (09:12)
[2020-05-17] MEDS: SPIRONOLACTONE 25 MG TABLET PO (09:15)
[2020-05-17] MEDS: POTASSIUM CHLORIDE 20 MEQ TABLET PO (09:19)
[2020-05-17] MEDS: FUROSEMIDE INJ 40 MG/4 ML VIAL 20 MG IV PUSH (09:20)
[2020-05-17 12:42] LABS: Glucose Point of Care 112 (65-105)
--- NOTE | 2020-05-17 15:55 | PM.PNCARD ---
Progress Note: A&P Assessment and Plan (1) HFrEF (heart failure with reduced ejection fraction): Code(s): I50.20 - Unspecified systolic (congestive) heart failure Status: Acute Assessment and Plan: Echocardiogram 05/16/2020: 1. Left ventricular chamber dimension is moderately enlarged. 2. Left ventricular systolic function is severely reduced, estimated at 30-35%. 3. The left ventricular diastolic function is abnormal. 4. E/e' 23 is elevated. 5. Global longitudinal strain is abnormal at -7.5%. 6. Left atrial chamber dimension is moderately enlarged. 7. There is moderate aortic valve sclerosis. 8. There is mild mitral valve regurgitation. 9. There is trace tricuspid valve regurgitation. 10. No pulmonary hypertension, estimated pulmonary arterial systolic pressure is 26 mmHg. Started on carvedilol, lisinopril and spironolactone. IV furosemide 20 mg b.i.d.. Diuresing. No complaints of any shortness of breath, lightheadedness or palpitations. Wants to go home in follow-up over at [facility] where he knows they take his insurance. Denies symptoms. No arrhythmias on tele. Possibly related to his alcohol intake although coronary artery disease cannot be excluded. Ischemic workup in the near future is recommended. Stressed the importance of close follow-up with [facility]. . (2) Hypertension: Qualifiers: Hypertension type: unspecified Qualified Code(s): I10 - Essential (primary) hypertension Code(s): I10 - Essential (primary) hypertension Status: Chronic Assessment and Plan: Much better controlled with the above medications. (3) Hypokalemia: Code(s): E87.6 - Hypokalemia Status: Acute Assessment and Plan: Supplemented. Will need to have blood work drawn on to follow potassium and sodium closely. Also will need BMP and magnesium level drawn next Saturday. Requisitions will be supplied at discharge. (4) Hyponatremia: Code(s): E87.1 - Hypo-osmolality and hyponatremia Status: Chronic Assessment and Plan: Improved. Monitor as above. Fluid restrict to 1800 cc ( 61 oz). Follow closely as above. Additional Plan Can be discharged from cardiac standpoint. See discharge instructions for follow-up. He is still deciding whether he will follow up on this side of the [place] or over at [facility]. Plan discussed with [id number] 05/17/2020 Subjective Date/time seen: 05/17/20 15:55 Interval history: Follow-up for: Heart failure with reduced ejection fraction, retention, alcohol abuse Date of service: 05/17/2020 Subjective: Denies chest discomfort, shortness of breath, lightheadedness or palpitations. No lower extremity edema. Wants to go home. Review of Systems Constitutional: Constitutional: Denies chills, Denies fatigue and Denies lethargy Eyes: Eyes: Denies blurry vision ENT: Denies system reviewed and no additional complaints, except as documented, Denies dizziness and Denies epistaxis Cardiovascular: Cardiovascular: Denies chest pain, Denies syncope, Denies lightheadedness, Denies palpitations and Denies dyspnea Respiratory: Respiratory: Denies dyspnea and Denies wheezing Gastrointestinal: Gastrointestinal: Denies nausea and Denies vomiting Genitourinary: Genitourinary: Denies hematuria and Reports dysuria Musculoskeletal: Musculoskeletal: Denies back pain and Denies myalgias Integumentary/Breasts: Skin/Breast: Denies pruritus Neurologic: Reports Normal hearing present, Denies dizziness and Denies syncope Psychiatric: Psychiatric: Denies anxiety Endocrine: Endocrine: Denies fatigue, Denies flushing and Denies palpitations Hematologic/Lymphatic: Hematologic/Lymphatic: Denies easy bleeding and Denies easy bruising Allergic/Immunologic: Allergic/Imm
[2020-05-17 16:40] LABS: Glucose Point of Care 115 (65-105)
[2020-05-17] MEDS: POTASSIUM CHLORIDE 20 MEQ TABLET 40 MEQ PO (16:55)
--- NOTE | 2020-05-17 17:14 | PM.DS ---
DS: Admitting Diagnosis Admitting Diagnosis Admitting Diagnosis: Pneumonia DS: Discharge Diagnosis Discharge Diagnosis (1) Community acquired pneumonia: Qualifiers: Laterality: unspecified laterality Qualified Code(s): J18.9 - Pneumonia, unspecified organism Code(s): J18.9 - Pneumonia, unspecified organism Status: Acute Assessment and Plan: r/o bacterial vs. viral pneumonia. 05/16/20 17:52 patient is 64-year-old male with history of alcohol abuse presented emergency department with a shortness of breath checks x-ray showed possible pulmonary congestion as well infiltrate, the cardiac showed severe systolic dysfunction with ejection fraction of 35% patient is seen by Cardiology does not suspect ischemic most likely secondary to alcohol abuse recommending medical management and down the road patient may need cardiac catheterization to further evaluate, currently patient states is feeling better not as short of breath as when he arrived as patient being treated with IV Lasix as well as Rocephin azithromycin for possible community-acquired pneumonia, currently patient does not appear DT will continue to monitor with [facility] protocol (2) Severe sepsis: Code(s): A41.9 - Sepsis, unspecified organism; R65.20 - Severe sepsis without septic shock Status: Acute Assessment and Plan: w/ tachycardia, leukocytosis and elevated lactic acid. . (3) Alcoholism: Code(s): F10.20 - Alcohol dependence, uncomplicated Status: Chronic Assessment and Plan: [facility] protocol. Thiamine PO daily, Lorazepam alcohol withdrawal prophylaxis. (4) Elevated troponin: Code(s): R79.89 - Other specified abnormal findings of blood chemistry Status: Acute Assessment and Plan: r/o ACS - trend troponin. further chest pain transfer to IMU NTG lovenox full dose DS: Summary Hospital Course Reason for hospitalization: Chief complaint: Pneumonia Narrative: This is a 64 year old male with known HTN and asthma who presented to the hospital [facility] complaining of shortness of breath. Associated symptoms include wheezing. The patient recently was diagnosed with pneumonia and completed a course of amoxicillin for same. He reports that he was feeling better until tonight when he started to have worsening shortness of breath and wheezing. He denies any recent fever, chills, cough, chest pain, or palpitations. He does report having a sore throat. The patient was evaluated in the ER [facility] and given multiple breathing treatments. The patient admits to drinking alcohol daily and was found to have severe hyponatremia in the ER tonight. He also was found to have an elevated troponin. CXR demonstrated extensive abnormal reticulation, differential diagnosis including acute or chronic infectious process, edema, fibrosis. Small pleural effusions. We were asked to admit the patient to the hospital for further care. He has no other complaints at this time. Hospital Course: 05/16/20 17:52 patient is 64-year-old male with history of alcohol abuse presented emergency department with a shortness of breath checks x-ray showed possible pulmonary congestion as well infiltrate, the cardiac showed severe systolic dysfunction with ejection fraction of 35% patient is seen by Cardiology does not suspect ischemic most likely secondary to alcohol abuse recommending medical management and down the road patient may need cardiac catheterization to further evaluate, currently patient states is feeling better not as short of breath as when he arrived as patient being treated with IV Lasix as well as Rocephin azithromycin for possible community-acquired pneumonia, currently patient does not appear DT will continue to monitor with [facility] protocol, patient remained clinically stable his symptoms have improved will discharge the patient today Status at Discharge Functional status at discharge: independent ambulation Overall status at
[2020-05-19 07:00] LABS: Procalcitonin <0.10 ng/mL (<0.10)
[2020-05-19 07:01] LABS: Pneumococcal Antigen Urine Not Detected (Not Detected)
[2020-05-19 17:51] LABS: Legionella pneumophila Ag Ur Not Detected (Not Detected)
[2020-05-23 03:24] LABS: Osmolality, Urine 163 mOsm/kg (50-1200)
== END 2020-05-17 18:30 | disposition home or self-care (01) | DRG 720 ==
LOC: ANHED 22:33 → ANHICU 05-14 00:55 → ANHIMU 05-16 07:12 → ANH2MED 05-18 16:44 → ANHICU 05-18 16:44 → ANHIMU 05-18 16:44
PROVIDERS: Family Medicine; Admitting Provider Family Medicine; Emergency Provider Emergency Medicine; Visit Provider Family Medicine
DX: A41.9 Sepsis, unspecified organism (principal); R65.20 Severe sepsis without septic shock; J18.9 Pneumonia, unspecified organism; J45.909 Unspecified asthma, uncomplicated; Z20.828 Contact with and (suspected) exposure to other viral communicable diseases; F10.20 Alcohol dependence, uncomplicated; R79.89 Other specified abnormal findings of blood chemistry; E87.1 Hypo-osmolality and hyponatremia; T50.2X5A Adverse effect of carbonic-anhydrase inhibitors, benzothiadiazides and other diuretics, initial encounter; E87.6 Hypokalemia; I10 Essential (primary) hypertension; E87.2 Acidosis; Z87.891 Personal history of nicotine dependence
CPT/HCPCS: 36415; 36600; 71045; 80048; 80307; 82375; 82728; 82805; 83036; 83050; 83605; 83735; 83880; 83935; 84145; 84300; 84443; 84484; 85025; 85027; 85610; 85730; 86140; 87040; 87070; 87205; 87449; 87635; 87899; 93005; 93306; 94002; 94640; 94660; 96361; 96365; 96366; 96367; 96375; 97161; 97165; 99285; A9270; C9803; G0378; G0379; J0456; J0696; J1650; J1940; J2060; J2930; J3475; J3480; J7030; J7040; J7050; Q9957; U0003